=== PATIENT | male | born 1950 | race Caucasian/White ===

== ENCOUNTER 2018-05-07 03:27 | Observation (INO) ==
[2018-05-07] MEDS ORDERED: Naloxone 0.4 MG/ML INJ IVP PRN (08:35)
[2018-05-07] MEDS ORDERED: *HR* HYDROcodone/Acet 5/325 mg TABLET PO PRN (08:35)
[2018-05-07] MEDS ORDERED: Acetaminophen 325 MG TABLET PO PRN (08:35)
[2018-05-07 10:01] LABS: Basophils # 0.1 K/mcL (0.0-0.2); Basophils % 0.6 %; Eosinophils # 0.2 K/mcL (0.0-0.6); Hematocrit 36.6 % (37.5-50.1); Hemoglobin 12.6 g/dL (12.9-16.9); Immature Granulocytes % 0.6 % (0-4); Lymphocytes # 1.2 K/mcL (0.6-4.6); Lymphocytes % 15.7 %; Mean Corpuscular HGB Conc 34.4 g/dL (31.6-35.5); Mean Corpuscular Hemoglobin 31.8 pg (28.0-33.3); Mean Corpuscular Volume 92.4 fL (83.0-100.0); Mean Platelet Volume 8.2 fL (9.4-12.4); Monocytes # 0.9 K/mcL (0.0-1.3); Monocytes % 10.9 %; Neutrophils # 5.5 K/mcL (1.6-8.9); Platelet Count 210 K/mcL (140-400); Red Blood Count 3.96 M/mcL (4.19-5.50); Red Cell Distribution Width 13.3 % (11.5-14.5); Segmented Neutrophils % 70.2 %
[2018-05-07 10:22] LABS: Alanine Aminotransferase 16 Units/L (7-52); Albumin/Globulin Ratio 1.7 (1.1-2.2); Alkaline Phosphatase 60 Units/L (34-104); Aspartate Amino Transferase 11 Units/L (13-39); BUN/Creatinine Ratio 16 (6-26); Bilirubin,Total 0.3 mg/dL (0.3-1.0); Blood Urea Nitrogen 8 mg/dL (8-23); Calcium 8.6 mg/dL (8.6-10.3); Carbon Dioxide 24 mEq/L (23-29); Chloride 103 mEq/L (98-107); Globulin 2.4 g/dL (2.4-3.5); Glucose 91 mg/dL (70-105); Osmolality,Calculated 274 (280-300); Potassium 3.8 mEq/L (3.5-5.1); Sodium 133 mEq/L (136-145); Total Protein 6.4 g/dL (6.4-8.9); eGFR For African Americans > 60 (> 60); eGFR For Non-African Americans > 60 (> 60)
[2018-05-07] MEDS: 0.9 % Sodium Chloride 1,000 ML IVC SCH (11:11)
[2018-05-07] MEDS: Pantoprazole 40 MG VIAL IVP SCH ×2 (11:19→18:12)
[2018-05-07] MEDS ORDERED: DIAZEPAM 10 MG RC PRN (13:16)
[2018-05-07] MEDS ORDERED: Fluticasone Propionate Nasal 50 MCG/SPRAY BOTTLE NS PRN (13:16)
--- NOTE | 2018-05-07 13:37 | Internal Med History&Physical ---
<Catherine Palm - Last Filed: 05/07/18 14:23> Date of Encounter: 05/07/18 Internal Medicine - H&P: HPI History of present illness: Mr. Webster is a 67 year old male Internal Medicine - H&P: Meds Acetaminophen [Extra Strength Non-Aspirin] 1,000 mg PO Q4H PRN 05/07/18 [History ] Albuterol Neb [Proventil Neb] 3 ml IH Q6H PRN 05/07/18 [History] Ascorbate Calcium [Vitamin C] 500 mg PO DAILY 05/07/18 [History] Aspirin Enteric Coated [Aspirin EC] 81 mg PO DAILY 05/07/18 [History] Atorvastatin [Lipitor] 10 mg PO [id number] 05/07/18 [History] Calcium Carbonate/Vitamin D3 [Oyster Shell Calcium-Vit D Tab] 1 tab PO DAILY [History] Cholecalciferol (D-3) [Vitamin D] 5,000 unit PO MOWEFR 05/07/18 [History] Clopidogrel [Plavix] 75 mg PO DAILY 05/07/18 [History] Cyanocobalamin (Vitamin B-12) [Vitamin B12] 1,000 mcg PO MO 05/07/18 [History] Diazepam [Diastat Acudial] 10 mg RC Q2H PRN 05/07/18 [History] Fluticasone Propionate Nasal [Flonase] 1 spr NS BID PRN 05/07/18 [History] Gabapentin [Neurontin] 200 mg PO QAM 05/07/18 [History] Gabapentin [Neurontin] 300 mg PO HS 05/07/18 [History] GuaiFENesin/Dextromethorphan [Robafen Dm Cgh-Chest Osmar Syrp] 10 ml PO Q4H PRN 05/07/18 [History] Multivitamin [One Daily Essential] 1 tab PO DAILY 05/07/18 [History] Nystatin POWDER [Nystop] 1 appl TP BID 05/07/18 [History] Pantoprazole Sodium [Protonix] 40 mg PO DAILY 05/07/18 [History] Phenytoin ER [Dilantin ER] 100 mg PO TID 05/07/18 [History] Vitamin E [Vitamin E] 600 units PO BID 05/07/18 [History] clonazePAM [Klonopin] 0.5 mg PO HS 05/07/18 [History] lamoTRIgine [Lamictal] 25 mg PO BID 05/07/18 [History] 3 Allergy/AdvReac Type Severity Reaction Status Date / Time No Known Allergies Allergy Verified 09/20/17 09:30 All Systems PM: A 10-system review of systems was performed and is negative for pertinent findings except as documented above in the HPI. - Constitutional Vitals: Temp Pulse Resp BP Pulse Ox 98.3 F 74 16 142/81 96 05/07/18 14:15 05/07/18 14:15 05/07/18 14:15 05/07/18 14:15 05/07/18 14:15 Internal Med - H&P Results - Labs CBC & Chem 7: 05/07/18 09:47 05/07/18 09:47 Labs: Short CBC 05/07/18 Range/Units 09:47 WBC 7.9 (4.3-11.1) K/mcL Hgb 12.6 L (12.9-16.9) g/dL Hct 36.6 L (37.5-50.1) % Plt Count 210 (140-400) K/mcL Neutrophils # 5.5 (1.6-8.9) K/mcL BMP 05/07/18 09:47 Sodium 133 L Potassium 3.8 Chloride 103 Carbon Dioxide 24 BUN 8 Creatinine 0.49 L Glucose 91 Calcium 8.6 Liver Function 05/07/18 Range/Units 09:47 Total Bilirubin 0.3 (0.3-1.0) mg/dL AST 11 L (13-39) Units/L ALT 16 (7-52) Units/L Alkaline Phosphatase 60 (34-104) Units/L Albumin 4.0 (3.5-5.7) g/dL - Attending Attestation Patient seen and examined with nurse practitioner. I personally participated in the examination and formulation of assessment and plan. Briefly this is a 67-year-old male with a past medical history of stroke, seizure history, hyperlipidemia who presented from [facility] for evaluation of lower GI bleed. Patient is on aspirin and Plavix therapy for multiple years since he has had more than one strokes. He has been having perfuse lower GI bleed in the form of bright red blood as well as clots for the last several days. His hemoglobin on arrival is 12.5. Vital signs appear stable at this point. On examination-I personally witnessed bright red blood coming out from the rectum as he was being changed in the room. Abdomen was soft and not distended. Did not have any tenderness to palpation on deep palpation. He does have a midline abdominal scar. Bilateral lower extremity power was 3/5 which is her baseline as per patient. Assessment and plan-this is a precarious situation with refuse lower GI bleed. Source appears to be internal hemorrhoids versus diverticular bleed. For now we will keep the patient off aspirin and Plavix because the risks of GI bleed outweigh the benefits of preventing a future stroke although he does need at least one of these medications and the long-term because of his significant stroke history. We will consult gastroenterology and patient will benefit from a colonoscopy. Most likely this will be done tomorrow and has we will keep him nothing by mouth after midnight and start about probably drawn tonight. We will check H&H every 6-8 hours and transfuse if less than 8. Low threshold to transfuse if symptomatic before that given stroke history. Plan of care has been discussed with nurse practitioner. Rest of the assessment and plan is as per [facility] documentation - Assessment and plan (1) GI bleed Current Visit: Yes Status: Acute Qualifiers: GI bleed type/associated pathology: unspecified gastrointestinal hemorrhage type Qualified Code(s): K92.2 - Gastrointestinal hemorrhage, unspecified (2) COPD (chronic obstructive pulmonary disease) Current Visit: Yes Status: Chronic Qualifiers: COPD type: unspecified COPD Qualified Code(s): J44.9 - Chronic obstructive pulmonary disease, unspecified (3) HLD (hyperlipidemia) Current Visit: Yes Status: Chronic Qualifiers: Hyperlipidemia type: pure hypercholesterolemia Qualified Code(s): E78.00 - Pure hypercholesterolemia, unspecified; E78.0 - Pure hypercholesterolemia (4) History of seizures Current Visit: Yes Status: Chronic (5) GERD (gastroesophageal reflux disease) Current Visit: Yes Status: Chronic Qualifiers: Esophagitis presence: esophagitis presence not specified Qualified Code(s) : K21.9 - Gastro-esophageal reflux disease without esophagitis (6) Osteoporosis Current Visit: Yes Status: Chronic Qualifiers: Presence of current pathological fracture: unspecified (7) Anxiety Current Visit: Yes Status: Chronic (8) DVT prophylaxis Current Visit: Yes Status: Acute (9) Weakness of left side of body Current Visit: Yes Status: Chronic (10) Hx of skin ulcer Current Visit: Yes Status: Chronic - Time Spent With Patient Total time spent is greater than 50% in coordination of care (as documented) at patient's floor/unit and/or counseling patient: <Antolin Feliz - Last Filed: 05/07/18 14:28> Date of Encounter: 05/07/18 Time of Encounter: 12:30 Internal Medicine - H&P: HPI Chief complaint: GI Bleed Admitted From: Hospital to Hospital Transfer Plans for Post Hospital Care: Transfer Detention Facility History of present illness: Mr. 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 Patient's mother reports that [facility]CF stated blood loss was substantial and bright red. Hgb 12.6 on admission. Pt. reports diarrhea and mild abdominal discomfort that is transient. Denies weakness or dizziness. No alleviating or aggravating factors. Pt. reports hx of skin breakdown on his coccyx/sacrum from being bedbound in [facility]. Pt. denies recent illness, SOB, dyspnea, fever, chills, nausea, vomiting, changes in vision , headache, chest pain, palpitations, constipation, numbness, tingling, lightheadedness, pre-syncope, or syncope. Past Med Surg Social Fam HX - Past Medical History Source: patient, old records reviewed, obtained from family Medical history: COPD, CVA, GERD, hyperlipidemia, seizures Additional medical history: cerebrovascular disease. Traumatic brain injury Psychiatric history: anxiety - Past Surgical History Surgical History: colostomy (30 years ago following brain surgery) Additional surgical history: Cranial surgery - Social History Smoking Status: Former smoker Packs per day: 2 PPD - Reports quitting in 2016 Smokeless Tobacco Status: No Alcohol use: none Drug use: none Occupational status: disabled Current living situation: [facility] Activity Level: Wheelchair bound Recent Out of Country Travel Within the Last 8 Weeks: No Exposure or Possible Exposure to Illness During Travel: No - Family History Father Race: Family Member Ethnicity: Non- Living Status: Age at : 52 Cause of : MS Hx Family Cardiac Disorders: Yes (MS, HTN, CAD) Mother Race: Family Member Ethnicity: Non- Living Status: Still Living Hx Family Cardiac Disorders: Yes (HTN) Hx Family Cancer: Yes (Breast, Skin) Brother Race: Family Member Ethnicity: Non- Living Status: Still Living Hx Family Cardiac Disorders: Yes (MS, Bypass surgery) Hx Family Endocrine Disorder: Yes (DM) Sister Race: Family Member Ethnicity: Non- Living Status: Still Living Hx Family Medical Disorders: No All Systems PM: A 10-system review of systems was performed and is negative for pertinent findings except as documented above in the HPI. - Constitutional Constitutional: weakness (LUE/LLE d/t residual effects of previous CVA), no chills, no fever(s), no night sweats - EENT Eyes: no change in vision, no discharge, no pain, no photophobia Ears: no ear discharge, no ear pain, no tinnitus Nose, mouth and throat: no dysphagia, no nasal discharge, no neck pain, no sore throat - Breasts Breasts: as per HPI - Cardiovascular Cardiovascular ROS IM: no chest pain, no diaphoresis, no dyspnea, no lightheadedness, no palpitations, no syncope - Respiratory Respiratory: as per HPI, cough, no dyspnea, no wheezing, no excessive phlegm production - Gastrointestinal Gastrointestinal: as per HPI, abdominal pain (Mild, intermittent), diarrhea, hematochezia, no hematemesis, no melena, no nausea, no vomiting - Genitourinary Genitourinary ROS male: as per HPI - Musculoskeletal Musculoskeletal ROS IM: as per HPI, arthralgias, no numbness, no tingling - Integumentary Integumentary IM: as per HPI, other (Hx of skin breakdown on the coccyx/sacrum) , no rash, no unusual bruising - Neurological Neurological ROS: as per HPI, weakness (LUE/LLE d/t previous CVA in 2014), no confusion, no convulsions, no focal weakness, no numbness, no tingling, no tremor(s) - Psychiatric Psychiatric: as per HPI, anxiety - Endocrine Endocrine IM: as per HPI - Hematologic/Lymphatic Hematologic/Lymphatic: no easy bruising - Allergic/Immunologic Allergic/Immunologic: as per HPI - Constitutional Vitals: Temp Pulse Resp BP Pulse Ox 97.6 F 80 16 146/85 95 05/07/18 11:00 05/07/18 11:00 05/07/18 11:00 05/07/18 11:00 05/07/18 11:00 General appearance: Present: cooperative, A&O X 3, pleasant, no acute distress, answers questions appropriately - Head Head exam: Present: atraumatic, normocephalic - Eye Eye exam: Present: PERRL, conjuntiva pink, sclera anicteric Pupils: Present: PERRL - ENT ENT exam: Present: normal exam - Neck Neck exam general surgery: Present: normal inspection, supple, trachea midline. Absent: lymphadenopathy - Respiratory Respiratory exam: Present: CTAB. Absent: accessory muscle use, rales, rhonchi, wheezes - Cardiovascular Cardiovascular exam: Present: RRR, +S1, +S2. Absent: diastolic murmur, gallop, rubs, systolic murmur - GI/Abdominal GI/Abdominal exam: Present: normal bowel sounds, soft, no peritoneal signs. Absent: distended, tenderness - Rectal Rectal exam: Present: bloody stool - Additional comments: exam deferred. - Extremities Exam Extremities exam: Present: warm, radial pulses palpable and symmetrical. Absent : calf tenderness, cyanotic, pedal edema - Back Exam Back exam: Present: normal inspection - Neurological Exam Neurological exam: Present: alert, CN II-XII intact, oriented X3, no focal deficits, speech deficit (Minor d/t previous stroke and traumatic brain injury 30 years ago). Absent: pronater drift, facial droop - Psychiatric Psychiatric exam: Present: normal affect, normal mood - Skin Skin exam: Present: dry, intact Internal Med - H&P Results - Labs CBC & Chem 7: 05/07/18 09:47 05/07/18 09:47 Labs: Short CBC 05/07/18 Range/Units 09:47 WBC 7.9 (4.3-11.1) K/mcL Hgb 12.6 L (12.9-16.9) g/dL Hct 36.6 L (37.5-50.1) % Plt Count 210 (140-400) K/mcL Neutrophils # 5.5 (1.6-8.9) K/mcL BMP 05/07/18 09:47 Sodium 133 L Potassium 3.8 Chloride 103 Carbon Dioxide 24 BUN 8 Creatinine 0.49 L Glucose 91 Calcium 8.6 Liver Function 05/07/18 Range/Units 09:47 Total Bilirubin 0.3 (0.3-1.0) mg/dL AST 11 L (13-39) Units/L ALT 16 (7-52) Units/L Alkaline Phosphatase 60 (34-104) Units/L Albumin 4.0 (3.5-5.7) g/dL - EKG Data EKG shows normal: sinus rhythm - EKG Data Prior EKG available for review: no EKG comments: 05/07/18 14:27 EKG dated 05/07/18 shows sinus rhythm with inferior myocardial infarction, probably old. - VTE Reasons for not Prescribing Prophylaxis: Medical contraindication - Assessment and plan (1) GI bleed Current Visit: Yes Status: Acute Assessment and plan: Acute GI bleed for the past week. Pts. mother reports ECF states blood loss was bright red and copious. Current Hgb 12.6 on admission. Pt. changed post- admission and found to have copious amount of bleeding in disposable pants. Hx of colon polyps. Timed H/H Q6HR. Type and screen ordered w/communication order to transfuse pt. if Hgb <8.0 d/t hx. GI consult ordered and discussed w/Dr. Swan and I appreciate the consult and recommendations as always. Pt. on aspirin and Plavix d/t CVA hx. Will hold for now per discussion w/Dr. Swan. SCDs for DVT prophylaxis. Clear liquid diet per GI for bowel prep (will avoid reds/purples/ blues). EKG ordered as well as continuous cardiac telemetry. Pt. discussed w/ Dr. Palm who agrees w/plan of care. Pt. is high risk for further morbidity and decline based on current and copious rectal bleeding, hx of CVA on Plavix and aspirin, current Hgb of 12.6 on admission and potential for Hgb drop based on current blood loss, hx, and risk factors. Observation. Qualifiers: GI bleed type/associated pathology: unspecified gastrointestinal hemorrhage type Qualified Code(s): K92.2 - Gastrointestinal hemorrhage, unspecified (2) COPD (chronic obstructive pulmonary disease) Current Visit: Yes Status: Chronic Assessment and plan: Hx of chronic COPD. Stable. Continue patient's inhaler and guaifenesin. Qualifiers: COPD type: unspecified COPD Qualified Code(s): J44.9 - Chronic obstructive pulmonary disease, unspecified (3) HLD (hyperlipidemia) Current Visit: Yes Status: Chronic Assessment and plan: Hx of chronic HLD. Lipid panel in a.m. labs. Continue patient's Lipitor. Qualifiers: Hyperlipidemia type: pure hypercholesterolemia Qualified Code(s): E78.00 - Pure hypercholesterolemia, unspecified; E78.0 - Pure hypercholesterolemia (4) History of seizures Current Visit: Yes Status: Chronic Assessment and plan: Hx of chronic seizures. Pts. mother reports last seizure was approx. 1 year ago. Continue pts. Dilantin, Lamictal, Neurontin, gabapentin, Klonopin. (5) GERD (gastroesophageal reflux disease) Current Visit: Yes Status: Chronic Assessment and plan: Hx of chronic GERD. 40 mg IVP Protonix BID. Qualifiers: Esophagitis presence: esophagitis presence not specified Qualified Code(s) : K21.9 - Gastro-esophageal reflux disease without esophagitis (6) Osteoporosis Current Visit: Yes Status: Chronic Assessment and plan: Hx of chronic osteoporosis. Stair-step pain medications for pain mgmt. Qualifiers: Presence of current pathological fracture: unspecified (7) Anxiety Current Visit: Yes Status: Chronic Assessment and plan: Hx of chronic anxiety. Continue pts. Klonopin, Lamictal, and Diazepam. (8) Weakness of left side of body Current Visit: Yes Status: Chronic Assessment and plan: Hx of chronic left-sided weakness of UE and LE d/t previous CVA in 2014. Pt. reports receiving intermittent PT at [facility]. PT/OT consults ordered. (9) Hx of skin ulcer Current Visit: Yes Status: Chronic Assessment and plan: Hx of chronic and recurring skin breakdown on the coccyx and sacrum d/t bedbound status at [facility]. Communication order to assess patient for signs of skin breakdown and turn Q2HR. Order daily wound care and Wound Care consult if appropriate. (10) DVT prophylaxis Current Visit: Yes Status: Acute Assessment and plan: Bilateral SCDs on LEs for DVT prophylaxis. Will hold pts. Plavix and aspirin until GI consult recommendations. - Time Spent With Patient Total time spent is greater than 50% in coordination of care (as documented) at patient's floor/unit and/or counseling patient: Greater than 35 minutes
[2018-05-07] MEDS ORDERED: SODIUM CHLORIDE/NAHCO3/KCL/PEG 4,000 ML SOLN.RECON PO ONE (14:24)
[2018-05-07 14:59] LABS: Hematocrit 33.2 % (37.5-50.1); Hemoglobin 11.3 g/dL (12.9-16.9)
[2018-05-07] MEDS ORDERED: *HR* LORazepam 2 MG/ML VIAL IVP PRN (15:57)
[2018-05-07] MEDS ORDERED: Albuterol 2.5 MG/3 ML NEBULIZER IH PRN (16:00)
[2018-05-07] MEDS: lamoTRIgine 25 MG TABLET PO SCH (20:56)
[2018-05-07] MEDS: clonazePAM 0.5 MG TABLET PO SCH (20:57)
[2018-05-07] MEDS: Gabapentin 300 MG CAPSULE PO SCH (20:57)
[2018-05-07] MEDS: Nystatin POWDER 30 GM BOTTLE TP SCH (21:01)
[2018-05-07 21:03] LABS: Hematocrit 33.1 % (37.5-50.1); Hemoglobin 11.3 g/dL (12.9-16.9)
[2018-05-08 05:09] LABS: Basophils % 0.3 %; Eosinophils # 0.2 K/mcL (0.0-0.6); Eosinophils % 2.1 %; Hematocrit 32.6 % (37.5-50.1); Hemoglobin 11.4 g/dL (12.9-16.9); Immature Granulocytes % 0.5 % (0-4); Lymphocytes # 1.2 K/mcL (0.6-4.6); Lymphocytes % 15.6 %; Mean Corpuscular Hemoglobin 32.9 pg (28.0-33.3); Mean Corpuscular Volume 94.2 fL (83.0-100.0); Mean Platelet Volume 8.4 fL (9.4-12.4); Monocytes # 0.8 K/mcL (0.0-1.3); Monocytes % 10.8 %; Neutrophils # 5.4 K/mcL (1.6-8.9); Platelet Count 213 K/mcL (140-400); Red Blood Count 3.46 M/mcL (4.19-5.50); Red Cell Distribution Width 13.3 % (11.5-14.5); Segmented Neutrophils % 70.7 %
[2018-05-08 05:16] LABS: Alanine Aminotransferase 17 Units/L (7-52); Albumin 3.7 g/dL (3.5-5.7); Albumin/Globulin Ratio 1.9 (1.1-2.2); Alkaline Phosphatase 59 Units/L (34-104); Aspartate Amino Transferase 12 Units/L (13-39); BUN/Creatinine Ratio 12 (6-26); Bilirubin,Total 0.3 mg/dL (0.3-1.0); Blood Urea Nitrogen 6 mg/dL (8-23); Calcium 8.2 mg/dL (8.6-10.3); Carbon Dioxide 24 mEq/L (23-29); Chloride 105 mEq/L (98-107); Cholesterol 142 mg/dL (< 200); Globulin 1.9 g/dL (2.4-3.5); Glucose 98 mg/dL (70-105); HDL Cholesterol 48 mg/dL (40-59); LDL Cholesterol,Calculated 80 mg/dL (0-99); Osmolality,Calculated 278 (280-300); Potassium 3.7 mEq/L (3.5-5.1); Sodium 135 mEq/L (136-145); Total Protein 5.6 g/dL (6.4-8.9); Triglycerides 71 mg/dL (< 150); eGFR For African Americans > 60 (> 60); eGFR For Non-African Americans > 60 (> 60)
[2018-05-08] MEDS: Pantoprazole 40 MG VIAL IVP SCH ×2 (06:15→17:58)
[2018-05-08] MEDS: lamoTRIgine 25 MG TABLET PO SCH ×2 (09:27→21:46)
[2018-05-08] MEDS: Cholecalciferol (D-3) 1,000 UNIT TABLET PO SCH (09:27)
[2018-05-08] MEDS: Gabapentin 100 MG CAPSULE PO SCH (09:27)
[2018-05-08] MEDS: Nystatin POWDER 30 GM BOTTLE TP SCH (09:28)
--- NOTE | 2018-05-08 10:34 | Gastroenterology Consult Note ---
<Tino Garza Rohit - Last Filed: 05/08/18 10:32> Date of Encounter: 05/08/18 Time of Encounter: 09:45 - Assessment and plan (1) GI bleed Current Visit: Yes Status: Acute Assessment and plan: Patient with rectal bleeding while on ASA and Plavix. Continue to hold Plavix. Plan for colonoscopy today, keep NPO until after scope. Pt was prepped overnight , but was not clear this AM. Give 2 tap water enemas. Hgb stable at 11.4 this AM , continue to monitor. Qualifiers: GI bleed type/associated pathology: unspecified gastrointestinal hemorrhage type Qualified Code(s): K92.2 - Gastrointestinal hemorrhage, unspecified - Time Spent With Patient Total time spent is greater than 50% in coordination of care (as documented) at patient's floor/unit and/or counseling patient: GI History of Present Illness - Data of Consult Patient: known to practice within the last 3 years Consult date: 05/08/18 Requesting Physician: Freddie Palm - Consult Narrative Reason for consult: Rectal bleeding History of present illness: Mr. 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 Patient is on aspirin and Plavix therapy for multiple years since he has had more than one stroke. He has been having BRBPR with clots for the past several days. He denies fever, chills, chest pain, shortness of breath, abdominal pain, nausea, vomiting, constipation, diarrhea, or melena. On admission Hgb 12.6 with MCV 92.4 And this AM Hgb 11.4 with MCV 94.2. Procedures: Colonoscopy 09/20/2017 Dr. Swan: Fair prep with stool in entire examined colon, distal rectum and anal verge normal. Colonoscopy 08/20/2003 Dr. Benavidez: Nonspecific inflammation descending colon, hyperplastic polyp. NSAIDs: ASA Anticoagulation: Plavix Past Med Surg Social Fam HX - Past Medical History Medical history: COPD, CVA, GERD, hyperlipidemia, seizures Additional medical history: cerebrovascular disease. Traumatic brain injury Psychiatric history: anxiety - Past Surgical History Surgical History: colostomy (30 years ago following brain surgery) Additional surgical history: Cranial surgery - Social History Smoking Status: Former smoker Packs per day: 2 PPD - Reports quitting in 2016 Smokeless Tobacco Status: No Alcohol use: none Drug use: none - Family History Father Race: Family Member Ethnicity: Non- Living Status: Age at : 52 Cause of : MA Hx Family Cardiac Disorders: Yes (MA, HTN, CAD) Mother Race: Family Member Ethnicity: Non- Living Status: Still Living Hx Family Cardiac Disorders: Yes (HTN) Hx Family Cancer: Yes (Breast, Skin) Brother Race: Family Member Ethnicity: Non- Living Status: Still Living Hx Family Cardiac Disorders: Yes (MA, Bypass surgery) Hx Family Endocrine Disorder: Yes (DM) Sister Race: Family Member Ethnicity: Non- Living Status: Still Living Hx Family Medical Disorders: No - Gastrointestinal Gastrointestinal: Present: as per HPI - Constitutional Constitutional: as per HPI - EENT Eyes: as per HPI Ears: Present: as per HPI Nose, mouth and throat: Present: as per HPI - Cardiovascular Cardiovascular ROS: Present: as per HPI - Respiratory Respiratory IM: Present: as per HPI - Genitourinary Genitourinary: Absent: change in color, Urinary frequency - Neurological ROS Neurological GI: Present: as per HPI - Hematologic/Lymphatic Hematologic/Lymphatic pediatric: Present: as per HPI - Musculoskeletal Musculoskeletal ROS GI: Present: as per HPI - Integumentary Integumentary GI: Present: as per HPI - Psychiatric ROS Psychiatric GI: Present: as per HPI - Endocrine Endocrine IM: Present: as per HPI - Constitutional Vitals: Temp Pulse Resp BP Pulse Ox 97.5 F L 71 16 146/83 96 05/08/18 06:42 05/08/18 06:42 05/08/18 06:42 05/08/18 06:42 05/08/18 06:42 General appearance: Present: cooperative, A&O X 3, no acute distress, answers questions appropriately - Head Head exam: Present: atraumatic, normocephalic - Eye Eye exam: Present: normal appearance, sclera anicteric - ENT ENT exam: Present: mucous membranes moist - Neck Neck exam general surgery: Present: normal inspection, trachea midline - Respiratory Respiratory exam: Present: CTAB. Absent: decreased breath sounds, rales, rhonchi, wheezes - Cardiovascular Cardiovascular exam: Present: RRR, +S1, +S2 - GI/Abdominal GI/Abdominal exam: Present: soft, no peritoneal signs. Absent: distended, firm , guarding, tenderness - Rectal Rectal exam: Present: deferred - Extremities Exam Extremities exam: Present: warm - Neurological Exam Neurological exam: Present: no focal deficits - Psychiatric Psychiatric exam: Present: normal affect, normal mood - Skin Skin exam: Present: dry, intact, normal color, warm Results - Labs CBC & Chem 7: 05/08/18 04:22 05/08/18 04:22 Labs: Last Result Calcium 8.2 mg/dL (8.6-10.3) L 05/08/18 04:22 Triglycerides 71 mg/dL (< 150) 05/08/18 04:22 Entire Visit Hgb 11.4 g/dL (12.9-16.9) L 05/08/18 04:22 Hct 32.6 % (37.5-50.1) L 05/08/18 04:22 Total Bilirubin 0.3 mg/dL (0.3-1.0) 05/08/18 04:22 AST 12 Units/L (13-39) L 05/08/18 04:22 ALT 17 Units/L (7-52) 05/08/18 04:22 Consult Discharge Plan - Plan Referrals: NONE,PCP [Primary Care Provider] - ([facility]) <Fatimah Swan - Last Filed: 05/08/18 19:28> Date of Encounter: 05/08/18 Time of Encounter: 17:00 - Time Spent With Patient Total time spent is greater than 50% in coordination of care (as documented) at patient's floor/unit and/or counseling patient: GI History of Present Illness - Data of Consult Requesting Physician: Freddie Palm - Consult Narrative History of present illness: Mr. Webster is a 67 year old male - Constitutional Vitals: Temp Pulse Resp BP Pulse Ox 97.6 F 67 14 108/62 95 05/08/18 19:11 05/08/18 19:11 05/08/18 19:11 05/08/18 19:11 05/08/18 19:11 Results - Labs CBC & Chem 7: 05/08/18 04:22 05/08/18 04:22 Labs: Last Result Calcium 8.2 mg/dL (8.6-10.3) L 05/08/18 04:22 Triglycerides 71 mg/dL (< 150) 05/08/18 04:22 Entire Visit Hgb 11.4 g/dL (12.9-16.9) L 05/08/18 04:22 Hct 32.6 % (37.5-50.1) L 05/08/18 04:22 Total Bilirubin 0.3 mg/dL (0.3-1.0) 05/08/18 04:22 AST 12 Units/L (13-39) L 05/08/18 04:22 ALT 17 Units/L (7-52) 05/08/18 04:22 - Attending Attestation I have personally performed a face to face evaluation on this patient. I have reviewed and agree with the care plan. History and Exam by me shows: Pt seen. No more rectal bleeding. on Exam: bad soft. A: rectal bleeding. Plan; COLOn to r/o LGI causes including anorecatl as cause of bleeding
[2018-05-08] MEDS: 0.9 % Sodium Chloride 1,000 ML IVC SCH (11:39)
--- NOTE | 2018-05-08 14:55 | Internal Med Progress Note ---
Date of Encounter: 05/08/18 Time of Encounter: 14:53 - Assessment and plan (1) GI bleed Current Visit: Yes Status: Acute Assessment and plan: pt presented with GI bleeding and underwent C-scope today. H/H stable, awaiting GI input. Hx of multiple stroke,on asa and plavix. Asa and plavix on hold per GI , will discuss with GI about when to resume. Qualifiers: GI bleed type/associated pathology: unspecified gastrointestinal hemorrhage type Qualified Code(s): K92.2 - Gastrointestinal hemorrhage, unspecified (2) COPD (chronic obstructive pulmonary disease) Current Visit: Yes Status: Chronic Assessment and plan: Hx of chronic COPD. Stable. Continue patient's inhaler and guaifenesin. Qualifiers: COPD type: unspecified COPD Qualified Code(s): J44.9 - Chronic obstructive pulmonary disease, unspecified (3) HLD (hyperlipidemia) Current Visit: Yes Status: Chronic Assessment and plan: Hx of chronic HLD. Lipid panel in a.m. labs. Continue patient's Lipitor. Qualifiers: Hyperlipidemia type: pure hypercholesterolemia Qualified Code(s): E78.00 - Pure hypercholesterolemia, unspecified; E78.0 - Pure hypercholesterolemia (4) History of seizures Current Visit: Yes Status: Chronic Assessment and plan: Hx of chronic seizures. Pts. mother reports last seizure was approx. 1 year ago. Continue Dilantin, Lamictal, Neurontin, gabapentin, Klonopin. (5) GERD (gastroesophageal reflux disease) Current Visit: Yes Status: Chronic Assessment and plan: Hx of chronic GERD. 40 mg IVP Protonix BID. Qualifiers: Esophagitis presence: esophagitis presence not specified Qualified Code(s) : K21.9 - Gastro-esophageal reflux disease without esophagitis (6) Osteoporosis Current Visit: Yes Status: Chronic Assessment and plan: Hx of chronic osteoporosis. Stair-step pain medications for pain mgmt. Qualifiers: Presence of current pathological fracture: unspecified Qualified Code(s): M81.0 - Age-related osteoporosis without current pathological fracture (7) Anxiety Current Visit: Yes Status: Chronic Assessment and plan: Hx of chronic anxiety. Continue pts. Klonopin, Lamictal, and Diazepam. (8) DVT prophylaxis Current Visit: Yes Status: Acute Assessment and plan: Bilateral SCDs on LEs for DVT prophylaxis. Will hold pts. Plavix and aspirin until GI consult recommendations. 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 Pt. reports receiving intermittent PT at [facility]. PT/OT consults ordered. (10) Hx of skin ulcer Current Visit: Yes Status: Chronic Assessment and plan: Hx of chronic and recurring skin breakdown on the coccyx and sacrum d/t bedbound status at [facility]. Communication order to assess patient for signs of skin breakdown and turn Q2HR. Order daily wound care and Wound Care consult if appropriate. - Time Spent With Patient Total time spent is greater than 50% in coordination of care (as documented) at patient's floor/unit and/or counseling patient: Greater than 35 minutes - Subjective Interval history: Pt resting and he has no complaints at this time. - Constitutional Vitals: Temp Pulse Resp BP Pulse Ox 98.1 F 81 16 145/86 95 05/08/18 11:39 05/08/18 11:39 05/08/18 11:39 05/08/18 11:39 05/08/18 11:39 General appearance: Present: cooperative, A&O X 3, pleasant, no acute distress, answers questions appropriately Exam: PHYSICAL EXAMINATION: GENERAL APPEARANCE: The patient is alert, oriented and in no acute distress. HEENT: Head is normocephalic. The sinuses are nontender. Pupils are equal and reactive. The nares are patent. Oropharynx clear without lesions. NECK: Supple without lymphadenopathy. HEART: Regular rate and rhythm. LUNGS: No crackles or wheezes are heard. ABDOMEN: Soft, nontender, nondistended with good bowel sounds heard. Inguinal area is normal. EXTREMITIES: Without cyanosis, clubbing or edema. NEUROLOGICAL: Gross nonfocal. SKIN: Warm and dry without any rash. Internal Medicine: Result - Labs CBC & Chem 7: 05/08/18 04:22 05/08/18 04:22 Labs: Short CBC 05/07/18 05/07/18 05/08/18 Range/Units 14:35 20:45 04:22 WBC 7.6 (4.3-11.1) K/mcL Hgb 11.3 L 11.3 L 11.4 L (12.9-16.9) g/dL Hct 33.2 L 33.1 L 32.6 L (37.5-50.1) % Plt Count 213 (140-400) K/mcL Neutrophils # 5.4 (1.6-8.9) K/mcL BMP 05/08/18 04:22 Sodium 135 L Potassium 3.7 Chloride 105 Carbon Dioxide 24 BUN 6 L Creatinine 0.51 L Glucose 98 Calcium 8.2 L Liver Function 05/08/18 Range/Units 04:22 Total Bilirubin 0.3 (0.3-1.0) mg/dL AST 12 L (13-39) Units/L ALT 17 (7-52) Units/L Alkaline Phosphatase 59 (34-104) Units/L Albumin 3.7 (3.5-5.7) g/dL - VTE Reasons for not Prescribing Prophylaxis: Medical contraindication Documentation of Mechanical Device: Intermittent pneumatic compression device Consult Discharge Plan - Plan Referrals: NONE,PCP [Primary Care Provider] - (ECF)
[2018-05-08] MEDS ORDERED: *HR* Midazolam HCl 5 MG/5 ML VIAL IVP ONE ×2 (18:02→18:22)
[2018-05-08] MEDS ORDERED: *HR* FentaNYL (PF) 100 MCG/2 ML VIAL ONE (18:02)
[2018-05-08] MEDS ORDERED: Simethicone 40 MG/0.6 ML MLS IR ONE (18:22)
[2018-05-08] MEDS ORDERED: *HR* FentaNYL (PF) 100 MCG/2 ML VIAL IVP ONE (18:22)
--- NOTE | 2018-05-08 18:24 | Pre-Sedation Evaluation ---
Pre-sedation evaluation - Pre-sedation checklist Date of procedure: 05/08/18 Procedure: colonoscopy Recent Vitals: Last Vital Signs Temp 98.2 F 05/08/18 15:00 Pulse 72 05/08/18 18:21 Resp 16 05/08/18 18:21 BP 136/83 05/08/18 18:21 Pulse Ox 94 05/08/18 18:21 H&P (including ROS) documented in medical record: Yes Previous reaction to sedatives/anesthetics: No Dietary Status: NPO after Midnight Dentition: No loose teeth or bridges ASA Classification *see protocol: CLASS III-Severe systemic disease Plan of Care: Pt appropriate candidate for procedure/moderate/conscious sedation , Risks/benefits of procedure/sedation discussed w/ patient/family Cardiac Registry (Cardio Only) - Functional Capacity - Clincal Frailty Scale
--- NOTE | 2018-05-08 18:59 | Electrocardiograph Report ---
[address] [place] [address] Test Date: 2018-05-07 Pat Name: Vin Webster Department: 115 Room: 3A Gender: M Hardware Engineering Manager: : 1950 Requested By: [id number] Order Number: [id number] Reading MD: Lauryn Newsome Measurements Intervals [place] Rate: 70 P: 13 KS: 165 QRS: -4 QRSD: 98 T: 11 QT: 377 QTc: 398 Interpretive Statements SINUS RHYTHM INFERIOR MYOCARDIAL INFARCTION, PROBABLY OLD Electronically Signed On 05-08-2018 18:57:15 EDT by Lauryn Newsome
[2018-05-08] MEDS: clonazePAM 0.5 MG TABLET PO SCH (21:46)
[2018-05-08] MEDS: Gabapentin 300 MG CAPSULE PO SCH (21:46)
[2018-05-09 09:23] LABS: Basophils % 0.7 %; Eosinophils # 0.1 K/mcL (0.0-0.6); Eosinophils % 2.4 %; Hematocrit 31.1 % (37.5-50.1); Hemoglobin 10.6 g/dL (12.9-16.9); Immature Granulocytes % 1.1 % (0-4); Immature Platelets 0.9 % (1.1-6.1); Lymphocytes # 1.2 K/mcL (0.6-4.6); Lymphocytes % 22.5 %; Mean Corpuscular HGB Conc 34.1 g/dL (31.6-35.5); Mean Corpuscular Hemoglobin 31.7 pg (28.0-33.3); Mean Corpuscular Volume 93.1 fL (83.0-100.0); Mean Platelet Volume 8.4 fL (9.4-12.4); Monocytes # 0.8 K/mcL (0.0-1.3); Monocytes % 14.7 %; Neutrophils # 3.2 K/mcL (1.6-8.9); Platelet Count 262 K/mcL (140-400); Red Blood Count 3.34 M/mcL (4.19-5.50); Red Cell Distribution Width 13.5 % (11.5-14.5); Segmented Neutrophils % 58.6 %
[2018-05-09] MEDS: Gabapentin 100 MG CAPSULE PO SCH (10:00)
[2018-05-09] MEDS: lamoTRIgine 25 MG TABLET PO SCH ×2 (10:00→21:00)
[2018-05-09 10:33] LABS: Alanine Aminotransferase 15 Units/L (7-52); Albumin 3.8 g/dL (3.5-5.7); Albumin/Globulin Ratio 1.8 (1.1-2.2); Alkaline Phosphatase 63 Units/L (34-104); Aspartate Amino Transferase 11 Units/L (13-39); BUN/Creatinine Ratio 8 (6-26); Bilirubin,Total 0.2 mg/dL (0.3-1.0); Blood Urea Nitrogen 6 mg/dL (8-23); Calcium 8.5 mg/dL (8.6-10.3); Carbon Dioxide 28 mEq/L (23-29); Chloride 104 mEq/L (98-107); Globulin 2.1 g/dL (2.4-3.5); Glucose 96 mg/dL (70-105); Osmolality,Calculated 279 (280-300); Potassium 3.9 mEq/L (3.5-5.1); Sodium 136 mEq/L (136-145); Total Protein 5.9 g/dL (6.4-8.9); eGFR For African Americans > 60 (> 60); eGFR For Non-African Americans > 60 (> 60)
[2018-05-09] MEDS: Nystatin POWDER 30 GM BOTTLE TP SCH ×2 (11:15→21:01)
--- NOTE | 2018-05-09 12:49 | Internal Med Progress Note ---
Date of Encounter: 05/09/18 Time of Encounter: 12:47 - Assessment and plan (1) GI bleed Current Visit: Yes Status: Acute Assessment and plan: 67-year-old male, [facility] resident, presented with GI bleeding. Colonoscopy yesterday showed normal distal rectum, study result was limited by moderate amount of stool within the entire colon. - Hemoglobin this morning 10.6, yesterday 11.4. - Bloody stool noted overnight. - Continue to hold aspirin and Plavix for now. - GI following. Qualifiers: GI bleed type/associated pathology: unspecified gastrointestinal hemorrhage type Qualified Code(s): K92.2 - Gastrointestinal hemorrhage, unspecified (2) COPD (chronic obstructive pulmonary disease) Current Visit: No Status: Chronic Assessment and plan: Hx of chronic COPD. Stable. Continue patient's inhaler and guaifenesin. Qualifiers: COPD type: unspecified COPD Qualified Code(s): J44.9 - Chronic obstructive pulmonary disease, unspecified (3) HLD (hyperlipidemia) Current Visit: Yes Status: Chronic Assessment and plan: Hx of chronic HLD. Continue patient's Lipitor. Qualifiers: Hyperlipidemia type: pure hypercholesterolemia Qualified Code(s): E78.00 - Pure hypercholesterolemia, unspecified; E78.0 - Pure hypercholesterolemia (4) History of seizures Current Visit: Yes Status: Chronic Assessment and plan: Hx of chronic seizures. Pts. mother reports last seizure was approx. 1 year ago. Continue Dilantin, Lamictal, Neurontin, gabapentin, Klonopin. (5) GERD (gastroesophageal reflux disease) Current Visit: Yes Status: Chronic Assessment and plan: Continue home medication. Qualifiers: Esophagitis presence: esophagitis presence not specified Qualified Code(s) : K21.9 - Gastro-esophageal reflux disease without esophagitis (6) Osteoporosis Current Visit: No Status: Chronic Assessment and plan: Hx of chronic osteoporosis. Qualifiers: Presence of current pathological fracture: unspecified Qualified Code(s): M81.0 - Age-related osteoporosis without current pathological fracture (7) Anxiety Current Visit: No Status: Chronic Assessment and plan: Hx of chronic anxiety. Continue pts. Klonopin, Lamictal, and Diazepam. (8) DVT prophylaxis Current Visit: Yes Status: Acute Assessment and plan: Bilateral SCDs on LEs for DVT prophylaxis. Continue to hold Plavix and aspirin. 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 Pt. reports receiving intermittent PT at [facility]. PT/OT consults ordered. (10) Hx of skin ulcer Current Visit: Yes Status: Chronic - Time Spent With Patient Total time spent is greater than 50% in coordination of care (as documented) at patient's floor/unit and/or counseling patient: Greater than 35 minutes - Subjective Interval history: Pt resting and he has no complaints at this time. - Constitutional Vitals: Temp Pulse Resp BP Pulse Ox 98.2 F 71 16 131/87 94 05/09/18 11:44 05/09/18 11:44 05/09/18 11:44 05/09/18 11:44 05/09/18 11:44 General appearance: Present: cooperative, A&O X 3, pleasant, no acute distress, answers questions appropriately Exam: PHYSICAL EXAMINATION: GENERAL APPEARANCE: The patient is alert, oriented and in no acute distress. HEENT: Head is normocephalic. The sinuses are nontender. Pupils are equal and reactive. The nares are patent. Oropharynx clear without lesions. NECK: Supple without lymphadenopathy. HEART: Regular rate and rhythm. LUNGS: No crackles or wheezes are heard. ABDOMEN: Soft, nontender, nondistended with good bowel sounds heard. Inguinal area is normal. EXTREMITIES: Without cyanosis, clubbing or edema. NEUROLOGICAL: Gross nonfocal. SKIN: Warm and dry without any rash. Internal Medicine: Result - Labs CBC & Chem 7: 05/09/18 05:16 05/09/18 05:16 Labs: Short CBC 05/09/18 Range/Units 05:16 WBC 5.4 (4.3-11.1) K/mcL Hgb 10.6 L (12.9-16.9) g/dL Hct 31.1 L (37.5-50.1) % Plt Count 262 (140-400) K/mcL Neutrophils # 3.2 (1.6-8.9) K/mcL BMP 05/09/18 05:16 Sodium 136 Potassium 3.9 Chloride 104 Carbon Dioxide 28 BUN 6 L Creatinine 0.78 Glucose 96 Calcium 8.5 L Liver Function 05/09/18 Range/Units 05:16 Total Bilirubin 0.2 L (0.3-1.0) mg/dL AST 11 L (13-39) Units/L ALT 15 (7-52) Units/L Alkaline Phosphatase 63 (34-104) Units/L Albumin 3.8 (3.5-5.7) g/dL - VTE Reasons for not Prescribing Prophylaxis: Medical contraindication Documentation of Mechanical Device: Intermittent pneumatic compression device Consult Discharge Plan - Plan Referrals: NONE,PCP [Primary Care Provider] - (ECF)
[2018-05-09] MEDS: Cholecalciferol (D-3) 1,000 UNIT TABLET PO SCH (15:00)
[2018-05-09] MEDS: Aspirin Enteric Coated 81 MG Tablet PO SCH (15:15)
[2018-05-09] MEDS: Gabapentin 300 MG CAPSULE PO SCH (21:00)
[2018-05-09] MEDS: clonazePAM 0.5 MG TABLET PO SCH (21:01)
[2018-05-10 07:09] VITALS: BP 131/81
[2018-05-10 07:48] LABS: Basophils % 0.4 %; Eosinophils # 0.1 K/mcL (0.0-0.6); Eosinophils % 1.9 %; Hematocrit 32.1 % (37.5-50.1); Hemoglobin 11.3 g/dL (12.9-16.9); Immature Granulocytes % 0.7 % (0-4); Lymphocytes # 1.6 K/mcL (0.6-4.6); Lymphocytes % 22.9 %; Mean Corpuscular HGB Conc 35.2 g/dL (31.6-35.5); Mean Corpuscular Hemoglobin 32.8 pg (28.0-33.3); Mean Platelet Volume 8.5 fL (9.4-12.4); Monocytes # 0.9 K/mcL (0.0-1.3); Neutrophils # 4.1 K/mcL (1.6-8.9); Platelet Count 216 K/mcL (140-400); Red Blood Count 3.45 M/mcL (4.19-5.50); Red Cell Distribution Width 13.4 % (11.5-14.5); Segmented Neutrophils % 61.1 %
[2018-05-10 08:06] LABS: Alanine Aminotransferase 17 Units/L (7-52); Albumin 3.8 g/dL (3.5-5.7); Albumin/Globulin Ratio 1.7 (1.1-2.2); Alkaline Phosphatase 68 Units/L (34-104); Aspartate Amino Transferase 12 Units/L (13-39); BUN/Creatinine Ratio 14 (6-26); Bilirubin,Total 0.3 mg/dL (0.3-1.0); Blood Urea Nitrogen 8 mg/dL (8-23); Calcium 8.7 mg/dL (8.6-10.3); Carbon Dioxide 25 mEq/L (23-29); Chloride 100 mEq/L (98-107); Globulin 2.3 g/dL (2.4-3.5); Glucose 104 mg/dL (70-105); Osmolality,Calculated 273 (280-300); Potassium 3.9 mEq/L (3.5-5.1); Sodium 132 mEq/L (136-145); Total Protein 6.1 g/dL (6.4-8.9); eGFR For African Americans > 60 (> 60); eGFR For Non-African Americans > 60 (> 60)
[2018-05-10] MEDS ORDERED: Ascorbic Acid 500 MG TABLET PO SCH (09:00)
[2018-05-10] MEDS ORDERED: Multivit/Ca/Min/Fe/FA 1 TAB TABLET PO SCH (09:00)
--- NOTE | 2018-05-10 09:13 | Discharge Summary ---
<Melina Rendon - Last Filed: 05/10/18 09:26> - NOTES TO OUTPATIENT PROVIDER Notes to Outpatient Provider: f/u with PCP within a week. Date of Encounter: 05/10/18 Time of Encounter: 09:11 - Discharge Diagnosis (1) GI bleed Priority: Primary Status: Resolved Assessment and Plan: 67-year-old male, [facility] resident, presented with GI bleeding. Colonoscopy showed normal distal rectum, a few specks of old blood clot noted, study was limited by moderate amount of stool within the entire colon. - Hemoglobin this morning 11.3 and yesterday 10.6. - No bloody stool noted overnight. - Discussed the treatment plan with GI, recommended to start asa and restart plavix in a week. aspirin restarted yesterday and plan to restart Plavixin a week. - discharge pt to SNF today and f/u with GI within a week. Qualifiers: GI bleed type/associated pathology: unspecified gastrointestinal hemorrhage type Qualified Code(s): K92.2 - Gastrointestinal hemorrhage, unspecified (2) COPD (chronic obstructive pulmonary disease) Priority: Secondary Status: Chronic Assessment and Plan: Hx of chronic COPD. Stable. Continue patient's inhaler and guaifenesin. Qualifiers: COPD type: unspecified COPD Qualified Code(s): J44.9 - Chronic obstructive pulmonary disease, unspecified (3) HLD (hyperlipidemia) Priority: Secondary Status: Chronic Assessment and Plan: Hx of chronic HLD. Continue patient's Lipitor. Qualifiers: Hyperlipidemia type: pure hypercholesterolemia Qualified Code(s): E78.00 - Pure hypercholesterolemia, unspecified; E78.0 - Pure hypercholesterolemia (4) History of seizures Priority: Secondary Status: Chronic Assessment and Plan: Hx of chronic seizures. Pts. mother reports last seizure was approx. 1 year ago. Continue Dilantin, Lamictal, Neurontin, gabapentin, Klonopin. (5) GERD (gastroesophageal reflux disease) Priority: Secondary Status: Chronic Assessment and Plan: Continue home medication. Qualifiers: Esophagitis presence: esophagitis presence not specified Qualified Code(s) : K21.9 - Gastro-esophageal reflux disease without esophagitis (6) Osteoporosis Priority: Secondary Status: Chronic Assessment and Plan: Hx of chronic osteoporosis. Qualifiers: Presence of current pathological fracture: unspecified Qualified Code(s): M81.0 - Age-related osteoporosis without current pathological fracture (7) Anxiety Priority: Secondary Status: Chronic Assessment and Plan: Hx of chronic anxiety. Continue pts. Klonopin, Lamictal, and Diazepam. (8) Weakness of left side of body Priority: Secondary Status: Chronic (9) Hx of skin ulcer Priority: Secondary Status: Chronic Assessment and Plan: Hx of chronic and recurring skin breakdown on the coccyx and sacrum d/t bedbound status at ECF. Communication order to assess patient for signs of skin breakdown and turn Q2HR. Order daily wound care and Wound Care consult if appropriate. Hospital course: Mr. 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 Patient's mother reports that DCF stated blood loss was substantial and bright red. Hgb 12.6 on admission. Pt. reports diarrhea and mild abdominal discomfort that is transient. Denies weakness or dizziness. No alleviating or aggravating factors. Pt. reports hx of skin breakdown on his coccyx/sacrum from being bedbound in ECF. Pt. denies recent illness, SOB, dyspnea, fever, chills, nausea, vomiting, changes in vision , headache, chest pain, palpitations, constipation, numbness, tingling, lightheadedness, pre-syncope, or syncope. His vital signs were stable during hospital stay, hemoglobin and hematocrit were stable as well. He underwent colonoscopy on 05/08/2018 which showed normal distal rectum and anal area, however, several specks of old blood clots were noted, study was limited because of moderate amount of stool within the entire colon. After discussed with GI, aspirin was restarted on 05/09, patient was instructed to restart Plavix on 05/16. His hemoglobin today 11.3. His discharged back to ECF. Discharge discussed with: patient Time spent discussing smoking cessation with patient: more than 10 minutes - Time Spent with Patient Total time spent providing and/or coordinating discharge services: Greater than 30 minutes - Discharge Medications Home Medications: Acetaminophen [Extra Strength Non-Aspirin] 1,000 mg PO Q4H PRN 05/07/18 [History ] Albuterol Neb [Proventil Neb] 3 ml IH Q6H PRN 05/07/18 [History] Ascorbate Calcium [Vitamin C] 500 mg PO DAILY 05/07/18 [History] Aspirin Enteric Coated [Aspirin EC] 81 mg PO DAILY 05/07/18 [History] Atorvastatin [Lipitor] 10 mg PO MOWEFRSA 05/07/18 [History] Calcium Carbonate/Vitamin D3 [Oyster Shell Calcium-Vit D Tab] 1 tab PO DAILY [History] Cholecalciferol (D-3) [Vitamin D] 5,000 unit PO MOWEFR 05/07/18 [History] Cyanocobalamin (Vitamin B-12) [Vitamin B12] 1,000 mcg PO MO 05/07/18 [History] Diazepam [Diastat Acudial] 10 mg RC Q2H PRN 05/07/18 [History] Fluticasone Propionate Nasal [Flonase] 1 spr NS BID PRN 05/07/18 [History] Gabapentin [Neurontin] 200 mg PO QAM 05/07/18 [History] Gabapentin [Neurontin] 300 mg PO HS 05/07/18 [History] GuaiFENesin/Dextromethorphan [Robafen Dm Cgh-Chest Osmar Syrp] 10 ml PO Q4H PRN 05/07/18 [History] Multivitamin [One Daily Essential] 1 tab PO DAILY 05/07/18 [History] Nystatin POWDER [Nystop] 1 appl TP BID 05/07/18 [History] Pantoprazole Sodium [Protonix] 40 mg PO DAILY 05/07/18 [History] Phenytoin ER [Dilantin ER] 100 mg PO TID 05/07/18 [History] Vitamin E 600 units PO BID 05/07/18 [History] clonazePAM [Klonopin] 0.5 mg PO HS 05/07/18 [History] lamoTRIgine [Lamictal] 25 mg PO BID 05/07/18 [History] Clopidogrel [Plavix] 75 mg PO DAILY #0 05/16/18 [Rx] Allergies/Adverse Reactions: 3 Allergy/AdvReac Type Severity Reaction Status Date / Time No Known Allergies Allergy Verified 09/20/17 09:30 Date of admission: 05/07/18 04:54 Primary care physician: PCP NONE Consults: 05/07/18 13:06 Consult to Stack Clerk [CONS] Routine Reason for SW Consult: Please assess patient for possible home needs for post -discharge planning. 05/07/18 13:24 Consult to Gastroenterology [CONS] Routine Consulting Provider: Sherri Scott Reason for Consult: Pt. has recent GI bleeding from rectum. Pts. mother reports ECF states it is substantial amount of bright red blood. Hx of colon polyps. Hgb currently 12.6. No baseline to compare. Pt. also has hx of CVA and is taking Plaxvix and aspirin. Call Completed: Yes Anticipated date of discharge: 05/10/18 - Constitutional Vitals: Temp Pulse Resp BP Pulse Ox 97.6 F 69 16 131/81 94 05/10/18 07:08 05/10/18 07:08 05/10/18 07:08 05/10/18 07:08 05/10/18 07:08 General appearance: Present: cooperative, A&O X 2, pleasant, no acute distress Exam: PHYSICAL EXAMINATION: GENERAL APPEARANCE: The patient is alert, oriented and in no acute distress. HEENT: Head is normocephalic. The sinuses are nontender. Pupils are equal and reactive. The nares are patent. Oropharynx clear without lesions. NECK: Supple without lymphadenopathy. HEART: Regular rate and rhythm. LUNGS: No crackles or wheezes are heard. ABDOMEN: Soft, nontender, nondistended with good bowel sounds heard. Inguinal area is normal. EXTREMITIES: Without cyanosis, clubbing or edema. NEUROLOGICAL: Gross nonfocal. SKIN: Warm and dry without any rash. - Patient Status Disposition: Transfer SNF Condition: Fair Functional capacity at discharge: bed bound Overall status at discharge: patient is back to baseline - Discharge Instructions Follow Up With: NONE,PCP [Primary Care Provider] - (ECF) - Diet and Activity Activity: increase activity as tolerated Diet: advance to your usual diet, regular diet - VTE Reasons for not Prescribing Prophylaxis: Medical contraindication Documentation of Mechanical Device: Intermittent pneumatic compression device <Catherine Palm - Last Filed: 05/12/18 09:31> Date of Encounter: 05/12/18 - Discharge Diagnosis (1) GI bleed Status: Resolved Qualifiers: GI bleed type/associated pathology: unspecified gastrointestinal hemorrhage type Qualified Code(s): Nadeem92.2 - Gastrointestinal hemorrhage, unspecified (2) COPD (chronic obstructive pulmonary disease) Status: Chronic Qualifiers: COPD type: unspecified COPD Qualified Code(s): J44.9 - Chronic obstructive pulmonary disease, unspecified (3) HLD (hyperlipidemia) Status: Chronic Qualifiers: Hyperlipidemia type: pure hypercholesterolemia Qualified Code(s): E78.00 - Pure hypercholesterolemia, unspecified; E78.0 - Pure hypercholesterolemia (4) History of seizures Status: Chronic (5) GERD (gastroesophageal reflux disease) Status: Chronic Qualifiers: Esophagitis presence: esophagitis presence not specified Qualified Code(s) : K21.9 - Gastro-esophageal reflux disease without esophagitis (6) Osteoporosis Status: Chronic Qualifiers: Presence of current pathological fracture: unspecified Qualified Code(s): M81.0 - Age-related osteoporosis without current pathological fracture (7) Anxiety Status: Chronic (8) Weakness of left side of body Status: Chronic (9) Hx of skin ulcer Status: Chronic Hospital course: Mr. Webster is a 67 year old male - Time Spent with Patient Total time spent providing and/or coordinating discharge services: Date of admission: 05/07/18 04:54 Primary care physician: PCP NONE Consults: 05/07/18 13:06 Consult to Stack Clerk [CONS] Routine Reason for SW Consult: Please assess patient for possible home needs for post -discharge planning. 05/07/18 13:24 Consult to Gastroenterology [CONS] Routine Consulting Provider: Gastroenterology Sonia Reason for Consult: Pt. has recent GI bleeding from rectum. Pts. mother reports ECF states it is substantial amount of bright red blood. Hx of colon polyps. Hgb currently 12.6. No baseline to compare. Pt. also has hx of CVA and is taking Plaxvix and aspirin. Call Completed: Yes - Constitutional Vitals: Temp Pulse Resp BP Pulse Ox 97.6 F 69 16 131/81 94 05/10/18 07:08 05/10/18 07:08 05/10/18 07:08 05/10/18 07:08 05/10/18 07:08 - Attending Attestation Late entry I have personally performed a physical examination on this patient and the patient in the formulation of the valdovinos elements of the assessment and plan for the discharge of this patient. Mr. Deysi has a history of recurrent strokes and came in with a lower GI bleed. His hemoglobin was stable and he was seen by gastroenterology. At the time of discharge he is to be started back on aspirin with Plavix to be started in about a week's time. This plan of care was discussed with the nurse practitioner as well. The assessment and plan and discharge documentation is accurate as per the nurse practitioner.
[2018-05-10] MEDS: lamoTRIgine 25 MG TABLET PO SCH (09:42)
[2018-05-10] MEDS: Aspirin Enteric Coated 81 MG Tablet PO SCH (09:43)
[2018-05-10] MEDS: Gabapentin 100 MG CAPSULE PO SCH (09:43)
[2018-05-10] MEDS: Cholecalciferol (D-3) 1,000 UNIT TABLET PO SCH (09:43)
[2018-05-10] MEDS: Nystatin POWDER 30 GM BOTTLE TP SCH (09:44)
[2018-05-12] MEDS ORDERED: Cyanocobalamin (B-12) 1,000 MCG TABLET PO SCH (12:40)
== END 2018-05-10 12:27 ==
LOC: 3ANU → SUATTDRO 04:54
PROVIDERS: ADMIT Internal Medicine; ATTEND Internal Medicine